=== PATIENT | male | born 1970 | race Caucasian/White ===

== ENCOUNTER 2018-03-18 08:02 | Outpatient (CLI) | payer OTHER ==
[2018-03-18 14:25] LABS: Bilirubin Negative (Negative); Blood, Urine Negative (Negative); Clarity CLEAR (Clear); Glucose, Urine (Dipstick) Negative (Negative); Hemoglobin 15.2 g/dL (14.0-18.0); Leukocyte Negative (Negative); Mean Corpuscular HGB CONC 33.6 g/dL (32.0-36.0); Mean Corpuscular Hemoglobin 32.1 pg (27.0-31.0); Mean Corpuscular Volume 95.5 fL (78.0-98.0); Mean Platelet Volume 8.9 fL (7.4-10.4); Nitrite Negative (Negative); Platelet Count 218 thou/uL (130-400); Protein, Urine (Dipstick) Negative (Neg-Trace); RBC Distribution Width 11.7 % (11.5-14.5); Red Blood Cell (RBC) Count 4.72 mill/uL (4.70-6.10); Specific Gravity, Urine 1.023 (1.002-1.036); Urobilinogen 0.2 mg/dL (0.2-1.0); White Blood Cell (WBC) Count 5.5 thou/uL (4.8-10.8)
[2018-03-18 14:32] LABS: Bacteria/HPF None Seen HPF (None Seen); Hyaline Casts/LPF 0-3 HYALINE CAST LPF (0-3 Hyaline); RBC/HPF 0-3 HPF (0-3); Squamous Epithelial None Seen HPF (0-3); WBC/HPF None Seen HPF (0-3)
[2018-03-18 14:34] LABS: PTT 30.7 SEC (22.9-36.1)
[2018-03-18 14:45] LABS: Anion Gap 15 mmol/L (10-20); BUN (Urea Nitrogen) 12 mg/dL (8.9-20.6); Calc. Creatinine Clearance 0 mL/min (70-130); Calcium 10.1 mg/dL (7.8-10.44); Carbon Dioxide 25 mmol/L (22-29); Chloride 104 mmol/L (98-107); Estimated GFR-MDRD 66; Glucose 144 mg/dL (70-105); Potassium 4.4 mmol/L (3.5-5.1); Sodium 140 mmol/L (136-145)
== END 2018-03-18 08:03 | disposition home or self-care (01) ==
LOC: LABBT 08:02
PROVIDERS: ATTEND Urology
DX: Z01.818 Encounter for other preprocedural examination (principal); N43.41 Spermatocele of epididymis, single
CPT/HCPCS: 80048; 81001; 85027; 85610; 85730; 87086; 93005; 93010

== ENCOUNTER 2018-03-20 05:59 | Day surgery (SDC) | payer OTHER ==
[2018-03-18 13:52] VITALS: BMI 34.5
[2018-03-20] MEDS ORDERED: Bupivacaine 0.25% HCL 30 ML VIAL ONE (06:49)
[2018-03-20] MEDS ORDERED: Fentanyl 100 MCG/2 ML VIAL ONE (07:08)
[2018-03-20] MEDS ORDERED: CEFAZOLIN 2 GM/50 ML BAG ONE (07:14)
--- NOTE | 2018-03-20 11:01 | OP ---
DATE OF PROCEDURE: 03/20/2018 SERVICE: Urology. PREOPERATIVE DIAGNOSIS: Right spermatocele. POSTOPERATIVE DIAGNOSIS: Right spermatocele. PROCEDURE PERFORMED: Right epididymectomy. 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 He has had a spermatocelectomy in the past, but unfortunately developed an another spermatocele, which only aggravates when he increases his activity. He is elected to undergo spermatocelectomy again with risks and benefits discussed, and he has agreed to proceed forward. DESCRIPTION OF PROCEDURE: After identification of armband and verification of consent, the patient was brought back to the operating room, where he underwent general anesthesia with an LMA. He was up in the supine position, and prepped and draped in usual sterile fashion. On exam, the spermatocele could not be palpated as the patient has only performed light activity recently. A small incision was made on the upper scrotum as that was the size of the previously noted spermatocele at the time of his first visit. The incision was done, carried out with a 15 blade. Dissection through the dartos and spermatic fascia were performed with Bovie electrocautery until the testicle could be delivered outside the scrotum. Once the delivery of the testicle, the surrounding tissues were dissected free. The tunica vaginalis was completely adherent to the testicle due to the prior surgery. Once the testicle had been freed up from the surrounding tissues, the spermatic cord was dissected free and inspection of the spermatic cord and testicle did not reveal any spermatocele visible. As such, I thought it may be best to go ahead and just perform an epididymectomy to avoid spermatocele recurrence on the epididymis, which is where his prior spermatocele had occurred. Doppler ultrasound was used to identify the spermatic arteries as there was significant scarring and the tissue planes were difficult to identify. The epididymis was identified and dissected free using the Hickman tip Bovie from the testicle toward the head of the epididymis. Great care was taken as it was very close to the spermatic artery but this spermatic artery was not injured during the procedure. The majority of the epididymis was removed. I could not find any additional epididymal segments left after completion. The spermatic cord was dissected and the pampiniform veins, vas deferens with the previous vasectomy clip, and arterial structures were all noted. There did not appear to be any type of cystic structure or any other problems on the testicle itself or on the epididymis. No other fluid collections or cyst could be identified, satisfied, and to avoid actual injury to the testicle or complete loss of the testicle. I felt that I had performed a maximal amount of surgery that I could be able to perform with an epididymectomy, which should allow for the lowest risk of a spermatocele recurrence. All bleeding points were cauterized and once there was no identifiable bleeding anywhere on the testicle, the testicle looked completely viable. The Doppler was used to reidentify the testicular artery and it was intact. Satisfied, the testicles re-delivered back into the scrotum and the dartos and spermatic fascia were closed with a running 2-0 Vicryl and the skin was closed with a 4-0 Monocryl. A cord block was performed with 0.25% Marcaine plain under the incision along the spermatic cord for a total of approximately 9.5 mL. The patient had Dermabond applied, scrotal fluffs, and mesh panties, and then he was awakened, taken to PACU for recovery in stable condition. COMPLICATIONS: None. ESTIMATED BLOOD LOSS: Minimal. RETAINED TUBES AND DRAINS: None. SPECIMENS: Right epididymis. DISPOSITION: The patient will be discharged home and follow up with me in a week for postop check. Job ID: [id number]
[2018-03-20] MEDS ORDERED: Dexamethasone 20 MG/5 ML VIAL ONE (12:20)
[2018-03-20] MEDS ORDERED: Lidocaine 1% PF 5 ML VIAL ONE (12:20)
[2018-03-20] MEDS ORDERED: PROPOFOL 200 MG/20 ML VIAL ONE (12:20)
[2018-03-20] MEDS ORDERED: Ondansetron PF 4 MG/2 ML Vial ONE (12:20)
== END 2018-03-20 11:55 | disposition home or self-care (01) ==
LOC: SDC 05:59
PROVIDERS: ATTEND Urology
PROC: 0VTJ0ZZ Resection of Right Epididymis, Open Approach (ICD-10-PCS; principal; 2018-03-20)
DX: D29.31 Benign neoplasm of right epididymis (principal); Z98.52 Vasectomy status; Z88.2 Allergy status to sulfonamides; Z91.013 Allergy to seafood; Z79.82 Long term (current) use of aspirin; Z79.899 Other long term (current) drug therapy; Z98.890 Other specified postprocedural states
CPT/HCPCS: 88304; J1100; J2001; J2405; J2704; J3010; S0020

== ENCOUNTER 2022-06-19 14:56 | Outpatient (CLI) | payer BC | END 2022-06-19 14:57 | disposition home or self-care (01) | LOC: LABBT 14:56 | PROVIDERS: ATTEND Specialist | DX: Z01.810 Encounter for preprocedural cardiovascular examination (principal); J34.2 Deviated nasal septum; J34.3 Hypertrophy of nasal turbinates; J31.2 Chronic pharyngitis; J32.3 Chronic sphenoidal sinusitis; J32.2 Chronic ethmoidal sinusitis; J34.89 Other specified disorders of nose and nasal sinuses | CPT/HCPCS: 93005; 93010 ==

== ENCOUNTER 2022-06-20 12:38 | Day surgery (SDC) | payer BC ==
[2022-06-19 15:20] VITALS: BMI 35.9
[2022-06-20] MEDS ORDERED: Oxymetazoline HCl 0.05% (30 ML BOT) ONE ×2 (13:45→17:46)
[2022-06-20] MEDS ORDERED: Midazolam HCl 2 mg/2 ml Vial ONE (16:25)
[2022-06-20] MEDS ORDERED: methylPREDNISolone Acetate 40 mg/ml Vial ONE (17:43)
[2022-06-20] MEDS ORDERED: fentaNYL PF 100 MCG/2 ML SYRINGE ONE (17:44)
[2022-06-20] MEDS ORDERED: Triamcinolone 40 MG/ML VIAL ONE (17:46)
[2022-06-20] MEDS ORDERED: Bacitracin Zinc Ointment 30 gm TUBE ONE (17:46)
[2022-06-20] MEDS ORDERED: EPINEPHrine 1 MG/ML AMP ONE (17:46)
[2022-06-20] MEDS ORDERED: Lidocaine 1% (PF) 30 ML VIAL ONE (17:46)
[2022-06-20] MEDS ORDERED: Glycopyrrolate 0.2 MG/ML 5 ML SYRINGE ONE (18:02)
[2022-06-20] MEDS ORDERED: PROPOFOL 200 MG/20 ML VIAL ONE (18:02)
[2022-06-20] MEDS ORDERED: Rocuronium Bromide 10 MG/ML (10ML VIAL) ONE (18:02)
[2022-06-20] MEDS ORDERED: Dexamethasone 20 MG/5 ML VIAL ONE (18:02)
[2022-06-20] MEDS ORDERED: ePHEDrine Sulfate 50 MG/10 ML VIAL ONE (18:02)
[2022-06-20] MEDS ORDERED: Ondansetron PF 4 MG/2 ML Vial ONE (18:02)
== END 2022-06-20 21:00 | disposition home or self-care (01) ==
LOC: SDC 12:38
PROVIDERS: ATTEND Specialist
PROC: 09BQ8ZZ Excision of Right Maxillary Sinus, Via Natural or Artificial Opening Endoscopic (ICD-10-PCS; principal; 2022-06-20)
PROC: 09TU8ZZ Resection of Right Ethmoid Sinus, Via Natural or Artificial Opening Endoscopic (ICD-10-PCS; principal; 2022-06-20)
PROC: 099S8ZZ Drainage of Right Frontal Sinus, Via Natural or Artificial Opening Endoscopic (ICD-10-PCS; principal; 2022-06-20)
PROC: 09SL8ZZ Reposition Nasal Turbinate, Via Natural or Artificial Opening Endoscopic (ICD-10-PCS; principal; 2022-06-20)
PROC: 099T8ZZ Drainage of Left Frontal Sinus, Via Natural or Artificial Opening Endoscopic (ICD-10-PCS; principal; 2022-06-20)
PROC: 09SM0ZZ Reposition Nasal Septum, Open Approach (ICD-10-PCS; principal; 2022-06-20)
PROC: 09BR8ZZ Excision of Left Maxillary Sinus, Via Natural or Artificial Opening Endoscopic (ICD-10-PCS; principal; 2022-06-20)
PROC: 09BX8ZZ Excision of Left Sphenoid Sinus, Via Natural or Artificial Opening Endoscopic (ICD-10-PCS; principal; 2022-06-20)
PROC: 09BW8ZZ Excision of Right Sphenoid Sinus, Via Natural or Artificial Opening Endoscopic (ICD-10-PCS; principal; 2022-06-20)
PROC: 09TV8ZZ Resection of Left Ethmoid Sinus, Via Natural or Artificial Opening Endoscopic (ICD-10-PCS; principal; 2022-06-20)
DX: J32.4 Chronic pansinusitis (principal); J34.2 Deviated nasal septum; J34.3 Hypertrophy of nasal turbinates; J33.8 Other polyp of sinus; J31.2 Chronic pharyngitis; J45.909 Unspecified asthma, uncomplicated; Z79.82 Long term (current) use of aspirin; Z79.899 Other long term (current) drug therapy; Z88.1 Allergy status to other antibiotic agents; Z88.2 Allergy status to sulfonamides
CPT/HCPCS: J0171; J1030; J1100; J2001; J2250; J2405; J2704; J3301

== ENCOUNTER 2022-10-22 10:57 | Outpatient (CLI) | payer BC | END 2022-10-22 10:58 | disposition home or self-care (01) | LOC: RAD 10:57 | PROVIDERS: ATTEND Internal Medicine | DX: R06.00 Dyspnea, unspecified (principal) | CPT/HCPCS: 71046 ==

== ENCOUNTER 2023-07-14 16:00 | Outpatient (CLI) | payer BC | END 2023-07-14 16:01 | disposition home or self-care (01) | LOC: SLEEPLAB 16:00 | PROVIDERS: ATTEND Family Medicine | DX: G47.33 Obstructive sleep apnea (adult) (pediatric) (principal); E66.9 Obesity, unspecified; R06.83 Snoring; G47.00 Insomnia, unspecified; R09.02 Hypoxemia; Z68.33 Body mass index [BMI] 33.0-33.9, adult | CPT/HCPCS: 95800 ==

== ENCOUNTER 2023-08-15 16:00 | Outpatient (CLI) | payer BC | END 2023-08-15 16:01 | LOC: SLEEPLAB 16:00 | PROVIDERS: ATTEND Family Medicine | DX: G47.33 Obstructive sleep apnea (adult) (pediatric) (principal); R09.02 Hypoxemia; R06.83 Snoring; E66.9 Obesity, unspecified; Z68.33 Body mass index [BMI] 33.0-33.9, adult | CPT/HCPCS: 95811 ==